=== PATIENT | female | born 1960 | race Caucasian/White ===

== ENCOUNTER 2016-11-02 16:17 | Outpatient (CLI) | payer OTHER ==
[~2016-11-02 16:17] MED LIST: ALPRAZOLAM0.5 MG PO; COLACE100 MG PO; DEMEROL50 MG PO; PROZAC10 MG PO; SEROQUEL25 MG PO
--- NOTE | 2016-11-02 16:58 | DIAGNOSTIC IMAGING REPORT ---
PROCEDURE: US KIDNEY/RENAL COMPLETE INDICATION: RIGHT FLANK PAIN TECHNIQUE: Trivedi scale and color Doppler sonographic imaging of the kidneys and urinary bladder was obtained. Intrarenal resistive indices were calculated when appropriate. COMPARISON: CT of the abdomen and pelvis 03/23/2016 FINDINGS: The right kidney measures 11.8 x 5.6 x 4.4 cm Normal cortical thickness and echogenicity. No hydronephrosis, cyst, solid mass, or shadowing calculus. Normal color Doppler blood flow throughout the kidney. Resistive indices in the intrarenal parenchymal arteries range from 0.59-0.74 The left kidney measures 11 x 5.7 x 5.3 cm Normal cortical thickness and echogenicity. No hydronephrosis, cyst, solid mass, or shadowing calculus. Normal color Doppler blood flow throughout the kidney. Resistive indices in the intrarenal parenchymal arteries range from 0.59 0.62 The filled urinary bladder has a volume of to 931 ml and a post void residual of 6 ml The urinary bladder wall is uniform in thickness without suspicious thickening or irregularity. No bladder debris, calcification or mass. Bilateral ureteral jets were visible indicating ureteral patency. There is a 7 cm left ovarian cyst IMPRESSION: 1. Normal renal morphology. 2. Normal urinary bladder morphology. 3. 7 cm left ovarian cyst.
== END 2016-11-02 23:00 ==
LOC: US SRH 16:17
DX: R10.9 Unspecified abdominal pain (principal); N83.202 Unspecified ovarian cyst, left side